=== PATIENT | male | born 1975 | race Two or more races ===

== ENCOUNTER 2022-09-09 08:35 | Emergency (ER) | payer MEDICARE, OTHER ==
[~2022-09-09] VITALS: Ht 177.8 cm; Wt 105.4 kg
[2022-09-09 09:16] LABS: Urine Bacteria NONE SEEN /hpf (None Seen); Urine Blood 2+ /uL (Negative); Urine Specific Gravity 1.008 (1.001-1.035); Urine WBC 2 /hpf (0 - 3)
[2022-09-09 09:28] LABS: Basophils # (auto) 0.1 10 ^3/uL (0-0.2); Monocytes # (auto) 1.1 10 ^3/uL (0-1.3); Red Cell Distribution Width 13.7 % (11.8-14.3)
[2022-09-09 09:30] LABS: Basophils % (auto) 0.8 % (0.0-2.0); Eosinophils # (auto) 0.3 10 ^3/uL (0-0.8); Eosinophils % (auto) 2.1 % (0.0-7.0); Hemoglobin 15.4 g/dL (13.5-17.5); Mean Corpuscular Hemoglobin 26.6 pg (28.0-32.0); Mean Corpuscular Hgb Conc. 32.9 g/dL (32.0-36.0); Mean Corpuscular Volume 80.8 fL (80.0-100.0); Monocytes % (auto) 8.7 % (0.0-12.0); Neutrophils # (auto) 9.8 10 ^3/uL (1.6-8.6); Neutrophils % (auto) 80.4 % (37.0-80.0); Nucleated Red Blood Cells % 0.3 %; Red Blood Cells 5.81 10^6/uL (4.5-5.90); White Blood Cell 12.2 10^3/uL (4.4-10.8)
[2022-09-09 09:43] LABS: Calcium 9.7 mg/dL (8.5-10.1); Potassium 4.1 mmol/L (3.5-5.1)
[2022-09-09 09:48] LABS: BUN/Creatinine Ratio 11.8 (10.0-20.0); Bilirubin, Total 1.1 mg/dL (0.2-1.0); Total Protein 7.4 g/dL (6.4-8.2)
[2022-09-09] MEDS ORDERED: SODIUM CHLORIDE 0.9% 1,000 ML IV ONE ×2 (11:45)
[2022-09-09 12:30] VITALS: BP 148/84
[2022-09-09] MEDS ORDERED: DOCUSATE SOD 100 MG CAP PO ONE (14:00)
== END 2022-09-09 13:02 | disposition home or self-care (01) ==
LOC: ER 08:35
DX: R10.84 Generalized abdominal pain (principal); R11.0 Nausea; E11.9 Type 2 diabetes mellitus without complications; F12.10 Cannabis abuse, uncomplicated
CPT/HCPCS: 36415; 74176; 80053; 81001; 85025; 96360; 96361; 99284; J7030